=== PATIENT | female | born 1985 | race Caucasian/White ===

== ENCOUNTER 2017-01-29 07:06 | Inpatient (IN) | payer OTHER ==
[2017-01-29] MEDS ORDERED: TERBUTALINE SULFATE 1 MG/ML SOL SC PRN (08:16)
[2017-01-29] MEDS ORDERED: OXYTOCIN 10000 MU/ML 20,000 MU in LACTATED RINGERS 1,000 ML IV SCH (08:30)
[2017-01-29] MEDS ORDERED: LACTATED RINGERS 1,000 ML IV SCH (08:30)
[2017-01-29] MEDS ORDERED: OXYTOCIN 10000 MU/ML SOL ONE (08:34)
[2017-01-29] MEDS: SODIUM CHLORIDE 0.9% FLUSH 10 ML SOL IV PRN (08:50)
[2017-01-29] MEDS ORDERED: CARBOPROST 250 MCG/ML SOL IM PRN (09:31)
[2017-01-29] MEDS ORDERED: METHYLERGONOVINE MALEATE 0.2 MG/ML SOL IM PRN (09:31)
[2017-01-29] MEDS ORDERED: MEPIVACAINE HCL 1% MPF 30 ML SOL INFIL PRN (09:31)
[2017-01-29] MEDS ORDERED: LACTATED RINGERS 1,000 ML IV PRN (09:31)
[2017-01-29] MEDS ORDERED: OXYTOCIN 10000 MU/ML SOL IM PRN (09:31)
[2017-01-29] MEDS ORDERED: FENTANYL CITRATE 50 MCG/ML SOL IV PRN (09:31)
[2017-01-29 09:57] LABS: BASOPHILS % (AUTO) 1 % (0-3); EOSINOPHILS % (AUTO) 1 % (0-9); HEMATOCRIT 33 % (35-47); MEAN CORPUSCULAR HGB CONC 34.4 gm/dl (32.0-36.0); MONOCYTES % (AUTO) 4.5 % (0-12); NEUTROPHILS % (AUTO) 80.8 % (37-80)
[2017-01-29 09:59] LABS: MEAN CORPUSCULAR VOLUME 79 fL (81-99)
[2017-01-29 10:05] LABS: ABO O; ANTIBODY SCREEN Negative; RH TYPE Positive
[2017-01-29] MEDS ORDERED: EPHEDRINE SULFATE 50 MG/ML SOL IV PRN (20:48)
[2017-01-29] MEDS ORDERED: NALBUPHINE HCL 20 MG/ML SOL IV PRN (20:48)
[2017-01-29] MEDS ORDERED: DIPHENHYDRAMINE 50 MG/ML SOL IV PRN (20:48)
[2017-01-29] MEDS ORDERED: NALOXONE HYDROCHLORIDE 0.4 MG/ML SOL IV PRN (20:48)
[2017-01-29] MEDS: LACTATED RINGERS 1,000 ML IV SCH ×3 (21:01→22:12)
[2017-01-29] MEDS ORDERED: LIDOCAINE HCL 2% MPF SOL ONE (21:20)
[2017-01-29] MEDS ORDERED: FENTANYL CITRATE 50 MCG/ML SOL ONE (21:20)
[2017-01-29] MEDS ORDERED: ROPIVACAINE HYDROCHLORIDE 5 MG/ML SOL ONE (21:21)
[2017-01-30] MEDS ORDERED: CITRIC ACID/SODIUM CITRATE SOL PO ONE ×2 (04:25→04:32)
[2017-01-30] MEDS ORDERED: LIDOCAINE HCL 2% MPF SOL ONE ×2 (04:33→05:05)
[2017-01-30] MEDS: LACTATED RINGERS 1,000 ML IV SCH ×4 (04:33→12:21)
[2017-01-30] MEDS ORDERED: OXYTOCIN 10000 MU/ML SOL ONE ×3 (04:36→05:49)
[2017-01-30] MEDS ORDERED: PHENYLEPHRINE HYDROCHLORIDE 10 MG/ML SOL ONE (04:47)
[2017-01-30] MEDS ORDERED: CEFAZOLIN SODIUM 1 GM PDS ONE (04:47)
[2017-01-30] MEDS ORDERED: FENTANYL CITRATE 50 MCG/ML SOL ONE (05:02)
[2017-01-30] MEDS ORDERED: ONDANSETRON HCL 4 MG/2 ML SOL ONE (05:02)
[2017-01-30] MEDS ORDERED: [UNRECOGNIZED DRUG - OTHER] IV ONE (05:15)
[2017-01-30] MEDS ORDERED: MORPHINE SULFATE 0.5 MG/ML SOL ONE (05:30)
[2017-01-30] MEDS ORDERED: METOCLOPRAMIDE HYDROCHLORIDE 5 MG/ML SOL ONE (05:42)
[2017-01-30] MEDS ORDERED: LACTATED RINGERS 1,000 ML with OXYTOCIN 10000 MU/ML 20 MU IV ONE (06:05)
[2017-01-30] MEDS ORDERED: FLEET ENEMA PR PRN (07:25)
[2017-01-30] MEDS ORDERED: ONDANSETRON HCL 4 MG/2 ML SOL IV PRN (07:25)
[2017-01-30] MEDS ORDERED: WITCH HAZEL 1 EA PAD TOP PRN (07:25)
[2017-01-30] MEDS ORDERED: TEMAZEPAM 15MG 15 MG CAP PO PRN (07:25)
[2017-01-30] MEDS ORDERED: METHYLERGONOVINE MALEATE 0.2 MG TAB PO PRN (07:25)
[2017-01-30] MEDS ORDERED: BENZOCAINE/MENTHOL 1 SPR TOP PRN (07:25)
[2017-01-30] MEDS ORDERED: BISACODYL 10 MG SUP PR PRN (07:25)
[2017-01-30] MEDS: KETOROLAC TROMETHAMINE 30 MG/ML SOL IV PRN ×2 (07:51→17:02)
[2017-01-30] MEDS: SODIUM CHLORIDE 0.9% FLUSH 10 ML SOL IV PRN (07:53)
[2017-01-30] MEDS ORDERED: SODIUM CHLORIDE 0.9% FLUSH 10 ML SOL IV PRN (07:56)
[2017-01-30 09:27] LABS: APPEARANCE,URINE Slightly Cloudy; BILIRUBIN,URINE NEGATIVE (NEGATIVE); COLOR,URINE Dark yellow; GLUCOSE, URINE (UA) NEGATIVE (NEGATIVE); KETONES,URINE TRACE (NEGATIVE); LEUKOCYTE ESTERASE ,URINE NEGATIVE (NEGATIVE); NITRATE,URINE NEGATIVE (NEGATIVE); OCCULT BLOOD,URINE 2+ (NEG-TRACE); PH,URINE 5.5; UROBILINOGEN,URINE 0.2 (0.2-1.0 EU)
[2017-01-30] MEDS: APAP/HYDROCODONE 325/5 TAB PO PRN ×4 (09:41→22:29)
[2017-01-30] MEDS: DIPHENHYDRAMINE 25 MG CAP PO PRN ×3 (09:47→17:43)
[2017-01-30 10:07] LABS: WBC,URINE 0-1 (0-5AV/HPF)
[2017-01-30] MEDS: CEFAZOLIN (PREMIX) 1 GM 1 GM/50 ML SOL IV SCH ×2 (10:21→10:48)
[2017-01-30] MEDS ORDERED: CEFAZOLIN (PREMIX) 1 GM 1 GM/50 ML SOL IV ONE (10:25)
[2017-01-30] MEDS: DOCUSATE SODIUM 100 MG SGL PO SCH ×2 (10:44→22:29)
[2017-01-31] MEDS: LACTATED RINGERS 1,000 ML IV SCH (00:17)
[2017-01-31] MEDS: APAP/HYDROCODONE 325/5 TAB PO PRN ×5 (03:54→21:31)
[2017-01-31] MEDS: IBUPROFEN 600 MG TAB PO PRN ×2 (07:26→16:28)
[2017-01-31] MEDS ORDERED: FERROUS GLUCONATE 324 MG TAB PO SCH (09:00)
[2017-01-31] MEDS ORDERED: FERROUS SULFATE 325 MG TAB ONE (09:08)
[2017-01-31] MEDS: DOCUSATE SODIUM 100 MG SGL PO SCH ×2 (09:13→20:55)
[2017-01-31] MEDS: FERROUS SULFATE 325 MG TAB PO SCH (20:55)
[2017-02-01] MEDS: IBUPROFEN 600 MG TAB PO PRN ×4 (00:17→19:19)
[2017-02-01] MEDS: APAP/HYDROCODONE 325/5 TAB PO PRN ×4 (04:46→22:02)
[2017-02-01] MEDS: FERROUS SULFATE 325 MG TAB PO SCH ×2 (09:15→21:21)
[2017-02-01] MEDS: DOCUSATE SODIUM 100 MG SGL PO SCH ×2 (09:15→21:21)
[2017-02-02] MEDS: IBUPROFEN 600 MG TAB PO PRN ×2 (01:10→07:50)
[2017-02-02] MEDS: APAP/HYDROCODONE 325/5 TAB PO PRN ×3 (02:47→12:58)
[2017-02-02 06:55] VITALS: O2SAT 98
[2017-02-02] MEDS: DOCUSATE SODIUM 100 MG SGL PO SCH (08:42)
[2017-02-02] MEDS: FERROUS SULFATE 325 MG TAB PO SCH (08:42)
[2017-02-02 14:43] VITALS: BP 129/77; PULSE 78; RESP 20; TEMP 98
== END 2017-02-02 15:13 | disposition home or self-care (01) | DRG 766 ==
LOC: OBSVTOIN 07:06 → OB 07:06
PROVIDERS: ADMIT Family Medicine; ATTEND Family Medicine
PROC: 3E033VJ Introduction of Other Hormone into Peripheral Vein, Percutaneous Approach (ICD-10-PCS; 2017-01-29)
PROC: 10D00Z1 Extraction of Products of Conception, Low, Open Approach (ICD-10-PCS; principal; 2017-01-30 05:00)
PROC: 0UB70ZZ Excision of Bilateral Fallopian Tubes, Open Approach (ICD-10-PCS; 2017-01-30 05:00)
DX: O66.2 Obstructed labor due to unusually large fetus (principal); D64.9 Anemia, unspecified; Z3A.40 40 weeks gestation of pregnancy; Z37.0 Single live birth; Z30.2 Encounter for sterilization
CPT/HCPCS: 36415; 59025; 81001; 85018; 85025; 86850; 86900; 86901; 99001; J0670; J0690; J1885; J2275; J2405; J2590; J2765; J2795; J3010; J3105